=== PATIENT | female | born 1945 | race Caucasian/White ===

== ENCOUNTER 2022-12-04 07:34 | Day surgery (SDC) | payer OTHER ==
[2022-12-03 14:13] VITALS: BMI 37.8
[2022-12-04] MEDS ORDERED: PROPOFOL 120 ML ONE (07:38)
[2022-12-04 09:03] VITALS: BP 98/54; PULSE 70; RESP 20; TEMP 97.1
== END 2022-12-04 09:25 | disposition home or self-care (01) ==
LOC: FASU-ENDO 07:34
PROVIDERS: ATTEND Internal Medicine Gastroenterology
PROC: 0D5H8ZZ Destruction of Cecum, Via Natural or Artificial Opening Endoscopic (ICD-10-PCS; principal; 2022-12-04 08:19)
DX: Z12.11 Encounter for screening for malignant neoplasm of colon (principal); K55.20 Angiodysplasia of colon without hemorrhage; K57.30 Diverticulosis of large intestine without perforation or abscess without bleeding; Z98.0 Intestinal bypass and anastomosis status; Z80.0 Family history of malignant neoplasm of digestive organs; Z86.010 Personal history of colon polyps; Z83.71 Family history of colonic polyps